=== PATIENT | female | born 1960 | race Caucasian/White ===

== ENCOUNTER 2024-12-18 07:50 | Day surgery (SDC) | payer MEDICARE ==
[2024-12-17 09:21] VITALS: BMI 22.9
[~2024-12-18 07:50] MED LIST: Fluorouracil 100 MG, Enoxaparin 25 MG, EPINEPHrine 0.3 MG in Ophthalmic Irrigation Solu... IRR SCH
[2024-12-18] MEDS ORDERED: Cyclopentolate 1% Opth Drop 2 ML BOT ONE (08:53)
[2024-12-18] MEDS ORDERED: Famotidine/PF 20 mg/2ml Vial ONE (10:22)
[2024-12-18] MEDS ORDERED: PROPOFOL 20 ML ONE (10:23)
[2024-12-18] MEDS ORDERED: Ondansetron PF 4 MG/2 ML Vial ONE (10:47)
[2024-12-18] MEDS ORDERED: Lidocaine 4% PF 5 ML AMP ONE (10:52)
[2024-12-18] MEDS ORDERED: Enoxaparin 30 MG (0.3 mL) SYRINGE ONE (10:52)
[2024-12-18] MEDS ORDERED: Lidocaine 1% PF 5 ML VIAL ONE (10:52)
[2024-12-18] MEDS ORDERED: CEFAZOLIN 1 GM VIAL ONE (10:52)
[2024-12-18] MEDS ORDERED: Maxitrol 0.1% Opth Oint 3.5 GM TUBE ONE (10:52)
[2024-12-18] MEDS ORDERED: hydrALAZINE 20 MG/ML VIAL ONE (12:01)
== END 2024-12-18 13:20 | disposition home or self-care (01) ==
LOC: SDC 07:50
PROVIDERS: ATTEND Ophthalmology Retina Specialist
PROC: 08T43ZZ Resection of Right Vitreous, Percutaneous Approach (ICD-10-PCS; principal; 2024-12-18)
PROC: 08NE3ZZ Release Right Retina, Percutaneous Approach (ICD-10-PCS; 2024-12-18)
DX: H43.391 Other vitreous opacities, right eye (principal); H35.371 Puckering of macula, right eye; Z96.1 Presence of intraocular lens; Z88.1 Allergy status to other antibiotic agents
CPT/HCPCS: 67041; J0166; J0360; J0690; J1308; J1650; J2405; J2704; J3010; J3301; J3490; J9190